=== PATIENT | female | born 1980 | race Caucasian/White ===

== ENCOUNTER 2021-01-24 08:49 | Outpatient (CLI) | payer OTHER | END 2021-01-24 08:50 | disposition home or self-care (01) | LOC: CSHWCC 08:49 | PROVIDERS: ATTEND Nurse Practitioner Family | DX: I87.2 Venous insufficiency (chronic) (peripheral) (principal); L97.812 Non-pressure chronic ulcer of other part of right lower leg with fat layer exposed; S81.821D Laceration with foreign body, right lower leg, subsequent encounter; I82.402 Acute embolism and thrombosis of unspecified deep veins of left lower extremity; F31.9 Bipolar disorder, unspecified; J45.991 Cough variant asthma; L03.115 Cellulitis of right lower limb; R60.0 Localized edema | CPT/HCPCS: 99213; G0463 ==

== ENCOUNTER 2021-02-09 09:59 | Outpatient (CLI) | payer OTHER | END 2021-02-09 10:00 | disposition home or self-care (01) | LOC: CSHWCC 09:59 | PROVIDERS: ATTEND Nurse Practitioner Family | DX: I87.2 Venous insufficiency (chronic) (peripheral) (principal); S81.821D Laceration with foreign body, right lower leg, subsequent encounter; L97.812 Non-pressure chronic ulcer of other part of right lower leg with fat layer exposed; I82.402 Acute embolism and thrombosis of unspecified deep veins of left lower extremity; L03.115 Cellulitis of right lower limb; F31.9 Bipolar disorder, unspecified; J45.991 Cough variant asthma; R60.0 Localized edema | CPT/HCPCS: 99213; G0463 ==

== ENCOUNTER 2021-02-28 08:22 | Outpatient (CLI) | payer OTHER | END 2021-02-28 08:23 | disposition home or self-care (01) | LOC: CSHWCC 08:22 | PROVIDERS: ATTEND Nurse Practitioner Family | DX: I87.2 Venous insufficiency (chronic) (peripheral) (principal); L97.812 Non-pressure chronic ulcer of other part of right lower leg with fat layer exposed; I82.402 Acute embolism and thrombosis of unspecified deep veins of left lower extremity; S81.821D Laceration with foreign body, right lower leg, subsequent encounter; L03.115 Cellulitis of right lower limb; R60.0 Localized edema; J45.991 Cough variant asthma; F31.9 Bipolar disorder, unspecified | CPT/HCPCS: 99213; G0463 ==

== ENCOUNTER 2021-03-29 09:33 | Outpatient (CLI) | payer OTHER | END 2021-03-29 09:34 | disposition home or self-care (01) | LOC: CSHWCC 09:33 | PROVIDERS: ATTEND Nurse Practitioner Family | DX: I87.2 Venous insufficiency (chronic) (peripheral) (principal); L97.812 Non-pressure chronic ulcer of other part of right lower leg with fat layer exposed; S81.821D Laceration with foreign body, right lower leg, subsequent encounter; I82.402 Acute embolism and thrombosis of unspecified deep veins of left lower extremity; L03.115 Cellulitis of right lower limb; J45.991 Cough variant asthma; F31.9 Bipolar disorder, unspecified; R60.0 Localized edema ==

== ENCOUNTER 2021-04-12 08:51 | Outpatient (CLI) | payer OTHER | END 2021-04-12 08:52 | disposition home or self-care (01) | LOC: CSHWCC 08:51 | PROVIDERS: ATTEND Nurse Practitioner Family | DX: S81.821D Laceration with foreign body, right lower leg, subsequent encounter (principal); L97.812 Non-pressure chronic ulcer of other part of right lower leg with fat layer exposed; R60.0 Localized edema; F31.9 Bipolar disorder, unspecified; I82.402 Acute embolism and thrombosis of unspecified deep veins of left lower extremity; I87.2 Venous insufficiency (chronic) (peripheral); J45.991 Cough variant asthma; L03.115 Cellulitis of right lower limb | CPT/HCPCS: 11042; 87070; 87205; 99213; G0463 ==

== ENCOUNTER 2021-04-19 11:19 | Outpatient (CLI) | payer OTHER | END 2021-04-19 11:20 | disposition home or self-care (01) | LOC: CSHWCC 11:19 | PROVIDERS: ATTEND Nurse Practitioner Family | DX: I87.2 Venous insufficiency (chronic) (peripheral) (principal); L97.812 Non-pressure chronic ulcer of other part of right lower leg with fat layer exposed; S81.821D Laceration with foreign body, right lower leg, subsequent encounter; L03.115 Cellulitis of right lower limb; I82.402 Acute embolism and thrombosis of unspecified deep veins of left lower extremity; R60.0 Localized edema; J45.991 Cough variant asthma; F31.9 Bipolar disorder, unspecified ==

== ENCOUNTER 2021-04-24 16:18 | Day surgery (SDC) | payer OTHER ==
[2021-04-24] MEDS ORDERED: PROPOFOL 20 ML ONE (16:41)
[2021-04-24] MEDS ORDERED: Fentanyl 100 MCG/2 ML VIAL ONE (16:41)
[2021-04-24] MEDS ORDERED: Lidocaine 2% PF 5 ML VIAL ONE (16:49)
[2021-04-24] MEDS ORDERED: Dexamethasone 20 MG/5 ML VIAL ONE (17:11)
[2021-04-24] MEDS ORDERED: Ondansetron PF 4 MG/2 ML Vial ONE (17:11)
== END 2021-04-24 18:25 | disposition home or self-care (01) ==
LOC: CSHSDC 16:18
PROVIDERS: ATTEND Specialist
DX: T18.5XXA Foreign body in anus and rectum, initial encounter (principal); F15.90 Other stimulant use, unspecified, uncomplicated; F17.210 Nicotine dependence, cigarettes, uncomplicated
CPT/HCPCS: J1100; J2001; J2405; J2704; J3010

== ENCOUNTER 2022-03-14 11:07 | Outpatient (CLI) | payer OTHER | END 2022-03-14 11:08 | disposition home or self-care (01) | LOC: CSHMAMMO 11:07 | PROVIDERS: ATTEND Nurse Practitioner Adult Health | DX: Z12.31 Encounter for screening mammogram for malignant neoplasm of breast (principal) | CPT/HCPCS: 77063; 77067 ==

== ENCOUNTER 2022-08-30 08:45 | Outpatient (CLI) | payer OTHER | END 2022-08-30 08:46 | disposition home or self-care (01) | LOC: CSHWCC 08:45 | PROVIDERS: ATTEND Nurse Practitioner Family | DX: S81.802D Unspecified open wound, left lower leg, subsequent encounter (principal); R60.0 Localized edema | CPT/HCPCS: 97607 ==

== ENCOUNTER 2022-09-05 11:40 | Outpatient (CLI) | payer OTHER | END 2022-09-05 11:41 | disposition home or self-care (01) | LOC: CSHWCC 11:40 | PROVIDERS: ATTEND Nurse Practitioner Family | DX: R60.0 Localized edema (principal); S81.802D Unspecified open wound, left lower leg, subsequent encounter | CPT/HCPCS: 29581; 97607 ==

== ENCOUNTER 2022-10-23 14:35 | Outpatient (CLI) | payer OTHER | END 2022-10-23 14:36 | disposition home or self-care (01) | LOC: CSHWCC 14:35 | PROVIDERS: ATTEND Nurse Practitioner Family | DX: R60.0 Localized edema (principal); S81.802D Unspecified open wound, left lower leg, subsequent encounter | CPT/HCPCS: 87070; 87077; 87186; 87205; 97597; 99213; G0463 ==

== ENCOUNTER 2022-11-06 10:19 | Outpatient (CLI) | payer OTHER | END 2022-11-06 10:20 | disposition home or self-care (01) | LOC: CSHWCC 10:19 | PROVIDERS: ATTEND Nurse Practitioner Family | DX: R60.0 Localized edema (principal); S81.802D Unspecified open wound, left lower leg, subsequent encounter | CPT/HCPCS: 99213; G0463 ==

== ENCOUNTER 2022-12-04 08:38 | Outpatient (CLI) | payer OTHER | END 2022-12-04 08:39 | disposition home or self-care (01) | LOC: CSHWCC 08:38 | PROVIDERS: ATTEND Nurse Practitioner Family | DX: S81.802D Unspecified open wound, left lower leg, subsequent encounter (principal); R60.0 Localized edema | CPT/HCPCS: 29581 ==

== ENCOUNTER 2023-01-18 10:50 | Outpatient (CLI) | payer OTHER | END 2023-01-18 10:51 | disposition home or self-care (01) | LOC: CSHWCC 10:50 | PROVIDERS: ATTEND Physician Assistant | DX: I87.332 Chronic venous hypertension (idiopathic) with ulcer and inflammation of left lower extremity (principal); F19.10 Other psychoactive substance abuse, uncomplicated | CPT/HCPCS: 99213; G0463 ==

== ENCOUNTER 2023-01-29 09:57 | Outpatient (CLI) | payer OTHER | END 2023-01-29 09:58 | disposition home or self-care (01) | LOC: CSHWCC 09:57 | PROVIDERS: ATTEND Physician Assistant | DX: I87.332 Chronic venous hypertension (idiopathic) with ulcer and inflammation of left lower extremity (principal); F19.10 Other psychoactive substance abuse, uncomplicated | CPT/HCPCS: 87070; 87077; 87186; 87205; 97597; 99212; 99213; G0463 ==

== ENCOUNTER 2023-02-05 09:37 | Outpatient (CLI) | payer OTHER | END 2023-02-05 09:38 | disposition home or self-care (01) | LOC: CSHWCC 09:37 | PROVIDERS: ATTEND Physician Assistant | DX: I87.332 Chronic venous hypertension (idiopathic) with ulcer and inflammation of left lower extremity (principal); F19.10 Other psychoactive substance abuse, uncomplicated; L97.929 Non-pressure chronic ulcer of unspecified part of left lower leg with unspecified severity | CPT/HCPCS: 29581 ==

== ENCOUNTER 2023-02-13 09:52 | Outpatient (CLI) | payer OTHER | END 2023-02-13 09:53 | disposition home or self-care (01) | LOC: CSHWCC 09:52 | PROVIDERS: ATTEND Physician Assistant | DX: I87.332 Chronic venous hypertension (idiopathic) with ulcer and inflammation of left lower extremity (principal); F19.10 Other psychoactive substance abuse, uncomplicated | CPT/HCPCS: 97597 ==

== ENCOUNTER 2023-02-28 13:41 | Outpatient (CLI) | payer OTHER | END 2023-02-28 13:42 | disposition home or self-care (01) | LOC: CSHWCC 13:41 | PROVIDERS: ATTEND Physician Assistant | DX: I87.332 Chronic venous hypertension (idiopathic) with ulcer and inflammation of left lower extremity (principal); L97.929 Non-pressure chronic ulcer of unspecified part of left lower leg with unspecified severity; F19.10 Other psychoactive substance abuse, uncomplicated | CPT/HCPCS: 97597 ==

== ENCOUNTER 2023-03-07 09:25 | Outpatient (CLI) | payer OTHER | END 2023-03-07 09:26 | disposition home or self-care (01) | LOC: CSHWCC 09:25 | PROVIDERS: ATTEND Physician Assistant | DX: I87.332 Chronic venous hypertension (idiopathic) with ulcer and inflammation of left lower extremity (principal); F19.10 Other psychoactive substance abuse, uncomplicated | CPT/HCPCS: 29581 ==

== ENCOUNTER 2023-04-02 12:47 | Outpatient (CLI) | payer OTHER | END 2023-04-02 12:48 | disposition home or self-care (01) | LOC: CSHWCC 12:47 | PROVIDERS: ATTEND Preventive Medicine Undersea and Hyperbaric Medicine | DX: I87.332 Chronic venous hypertension (idiopathic) with ulcer and inflammation of left lower extremity (principal); L03.116 Cellulitis of left lower limb; F19.10 Other psychoactive substance abuse, uncomplicated; L97.929 Non-pressure chronic ulcer of unspecified part of left lower leg with unspecified severity | CPT/HCPCS: 29581 ==

== ENCOUNTER 2023-04-11 14:20 | Outpatient (CLI) | payer OTHER | END 2023-04-11 14:21 | disposition home or self-care (01) | LOC: CSHWCC 14:20 | PROVIDERS: ATTEND Preventive Medicine Undersea and Hyperbaric Medicine | DX: I87.332 Chronic venous hypertension (idiopathic) with ulcer and inflammation of left lower extremity (principal); L97.929 Non-pressure chronic ulcer of unspecified part of left lower leg with unspecified severity; L03.116 Cellulitis of left lower limb; F19.10 Other psychoactive substance abuse, uncomplicated | CPT/HCPCS: 29581 ==

== ENCOUNTER 2023-05-01 13:57 | Outpatient (CLI) | payer OTHER | END 2023-05-01 13:58 | disposition home or self-care (01) | LOC: CSHWCC 13:57 | PROVIDERS: ATTEND Nurse Practitioner Family | DX: I87.332 Chronic venous hypertension (idiopathic) with ulcer and inflammation of left lower extremity (principal); L03.116 Cellulitis of left lower limb; F19.10 Other psychoactive substance abuse, uncomplicated | CPT/HCPCS: 87070; 87077; 87186; 87205; 99213; G0463 ==

== ENCOUNTER 2023-05-08 13:20 | Outpatient (CLI) | payer OTHER | END 2023-05-08 13:21 | disposition home or self-care (01) | LOC: CSHWCC 13:20 | PROVIDERS: ATTEND Nurse Practitioner Family | DX: I87.332 Chronic venous hypertension (idiopathic) with ulcer and inflammation of left lower extremity (principal); F19.10 Other psychoactive substance abuse, uncomplicated; L03.116 Cellulitis of left lower limb; L08.9 Local infection of the skin and subcutaneous tissue, unspecified; L97.929 Non-pressure chronic ulcer of unspecified part of left lower leg with unspecified severity | CPT/HCPCS: 11042 ==

== ENCOUNTER 2023-05-15 14:57 | Outpatient (CLI) | payer OTHER | END 2023-05-15 14:58 | disposition home or self-care (01) | LOC: CSHWCC 14:57 | PROVIDERS: ATTEND Nurse Practitioner Family | DX: I87.332 Chronic venous hypertension (idiopathic) with ulcer and inflammation of left lower extremity (principal); F19.10 Other psychoactive substance abuse, uncomplicated; L03.116 Cellulitis of left lower limb; L08.9 Local infection of the skin and subcutaneous tissue, unspecified; L97.929 Non-pressure chronic ulcer of unspecified part of left lower leg with unspecified severity | CPT/HCPCS: 11042 ==

== ENCOUNTER 2023-05-22 14:22 | Outpatient (CLI) | payer OTHER | END 2023-05-22 14:23 | disposition home or self-care (01) | LOC: CSHWCC 14:22 | PROVIDERS: ATTEND Nurse Practitioner Family | DX: I87.332 Chronic venous hypertension (idiopathic) with ulcer and inflammation of left lower extremity (principal); F19.10 Other psychoactive substance abuse, uncomplicated; L03.116 Cellulitis of left lower limb | CPT/HCPCS: 11042 ==

== ENCOUNTER 2023-06-06 | Outpatient (CLI) | payer OTHER | END 2023-06-06 13:52 | disposition home or self-care (01) | DX: I87.332 Chronic venous hypertension (idiopathic) with ulcer and inflammation of left lower extremity (principal); L97.322 Non-pressure chronic ulcer of left ankle with fat layer exposed; F19.10 Other psychoactive substance abuse, uncomplicated ==

== ENCOUNTER 2023-08-02 10:44 | Outpatient (CLI) | payer OTHER | END 2023-08-02 10:45 | disposition home or self-care (01) | LOC: CSHWCC 10:44 | PROVIDERS: ATTEND Nurse Practitioner Family | DX: I87.332 Chronic venous hypertension (idiopathic) with ulcer and inflammation of left lower extremity (principal); L97.322 Non-pressure chronic ulcer of left ankle with fat layer exposed; I70.243 Atherosclerosis of native arteries of left leg with ulceration of ankle; F19.10 Other psychoactive substance abuse, uncomplicated | CPT/HCPCS: 97597 ==